=== PATIENT | female | born 1960 | race Caucasian/White ===

== ENCOUNTER → 2024-08-14 12:49 | Outpatient (CLI) | payer OTHER, SELFPAY ==
--- NOTE | 2024-08-14 12:51 | DI.US.S_ITS ---
PROCEDURE: US THYROID INDICATIONS: HYPOTHYROIDISM TECHNIQUE: Real-time scanning was performed of the thyroid gland, with image documentation. COMPARISON: None. FINDINGS: Thyroid: Right lobe measures 3.6 x 1.4 x 2.0 cm. Left lobe measures 1.5 x 1.4 x 1.5 cm. Isthmus is 0.7 cm thick. Echotexture is markedly heterogeneous.. IMPRESSION: Markedly heterogeneous thyroid without focal nodule. Dictated by: Luli Solis M.D. on 08/16/2024 at 11:45 Approved by: Luli Solis M.D. on 08/16/2024 at 11:55
== END ==
PROVIDERS: PCP Nurse Practitioner Family; Referring Provider Nurse Practitioner Family; Visit Provider Nurse Practitioner Family
DX: E03.9 Hypothyroidism, unspecified (principal)
CPT/HCPCS: 76536